=== PATIENT | female | born 1990 | race Caucasian/White ===

== ENCOUNTER 2023-07-10 16:47 | Inpatient (IN) | payer SELFPAY ==
[~2023-07-10 16:47] MED LIST: Iopamidol 370 76% 100 ML VIAL ONE
[2023-07-10 17:28] LABS: #Eosinphils 0.1 10x3/uL (0.0-0.5); #Monocytes 0.9 10x3/uL (0.0-1.1); #Neutrophils 5.9 10x3/uL (1.5-8.4); %Basophils 0.5 % (0.0-2.0); %Eosinophils 1.2 % (0.0-6.0); %Lymphocytes 16.6 % (18.0-47.0); %Monocytes 10.5 % (0.0-10.0); %Neutrophils 70.6 % (40.0-75.0); Hematocrit 39.1 % (34.9-44.5); Hemoglobin 13.6 g/dL (12.0-15.5); Mean Corpuscular HGB CONC 34.8 g/dL (32.0-36.0); Mean Platelet Volume 10.9 fl (7.4-10.4); Platelet Count 286 10x3/uL (150-450); RBC Distribution Width 12.6 % (11.5-14.5); Red Blood Cell (RBC) Count 4.25 10x6/uL (3.90-5.03); White Blood Cell (WBC) Count 8.3 10x3/uL (3.5-10.5)
[2023-07-10 17:44] LABS: ALT (SGPT) 31 U/L (8-55); AST (SGOT) 25 U/L (5-34); Alkaline Phosphatase 87 U/L (40-110); Anion Gap 14 mmol/L (10-20); BUN (Urea Nitrogen) 8 mg/dL (7.0-18.7); Bilirubin, Total 0.3 mg/dL (0.2-1.2); Calc. Creatinine Clearance 0 mL/min (70-130); Calcium 8.4 mg/dL (7.8-10.44); Carbon Dioxide 23 mmol/L (22-29); Chloride 105 mmol/L (98-107); Estimated GFR 99; Globulin 4.1 g/dL (2.4-3.5); Glucose 111 mg/dL (70-105); Potassium 3.5 mmol/L (3.5-5.1); Protein, Total 7.1 g/dL (6.0-8.3); Sodium 138 mmol/L (136-145)
[2023-07-10] MEDS ORDERED: LevoFLOXacin 750 mg/D5W 150 ml Premix Bag ONE (18:39)
[2023-07-10] MEDS ORDERED: Senokot S 8.6-50 MG TAB PO PRN (19:33)
[2023-07-10] MEDS ORDERED: Calcium Carbonate 500 MG ChewTAB PO PRN (19:33)
[2023-07-10] MEDS ORDERED: Ondansetron PF 4 MG/2 ML Vial IVP PRN (19:33)
[2023-07-10 19:46] LABS: SARS-CoV-2 NAA Rapid Test Not Detected (NotDetected)
[2023-07-10] MEDS: Benzonatate 100 MG CAP PO SCH (21:53)
[2023-07-10] MEDS: Zolpidem Tartrate 5 MG TAB PO PRN (21:53)
[2023-07-10 21:56] VITALS: BMI 54.6
[2023-07-11] MEDS: Acetaminophen 325 MG TAB PO PRN ×2 (01:02→18:12)
[2023-07-11 04:59] LABS: #Eosinphils 0.1 10x3/uL (0.0-0.5); #Monocytes 0.9 10x3/uL (0.0-1.1); #Neutrophils 4.1 10x3/uL (1.5-8.4); %Basophils 0.6 % (0.0-2.0); %Lymphocytes 24.7 % (18.0-47.0); %Monocytes 12.4 % (0.0-10.0); %Neutrophils 59.9 % (40.0-75.0); Hematocrit 36.2 % (34.9-44.5); Hemoglobin 12.9 g/dL (12.0-15.5); Mean Corpuscular HGB CONC 35.6 g/dL (32.0-36.0); Mean Corpuscular Hemoglobin 32.7 pg (27.0-33.0); Mean Corpuscular Volume 91.9 fl (81.6-98.3); Mean Platelet Volume 11.4 fl (7.4-10.4); Platelet Count 289 10x3/uL (150-450); RBC Distribution Width 12.4 % (11.5-14.5); Red Blood Cell (RBC) Count 3.94 10x6/uL (3.90-5.03); White Blood Cell (WBC) Count 6.9 10x3/uL (3.5-10.5)
[2023-07-11 05:10] LABS: Anion Gap 12 mmol/L (10-20); BUN (Urea Nitrogen) 8 mg/dL (7.0-18.7); CRP (Inflammatory) 18.37 mg/dL (= or < 0.5); Calc. Creatinine Clearance 280 mL/min (70-130); Carbon Dioxide 23 mmol/L (22-29); Chloride 107 mmol/L (98-107); Estimated GFR 107; Glucose 115 mg/dL (70-105); Potassium 3.5 mmol/L (3.5-5.1); Sodium 138 mmol/L (136-145)
[2023-07-11] MEDS: Guaifenesin DM 100-10/5 ML UDCUP PO PRN ×2 (05:46→18:12)
[2023-07-11 06:16] LABS: Pregnancy Test - Urine (BHCG) Negative (Negative); Pregu Control Background? CLEAR/WHITE (CLR/WHITE); Pregu Control Bar Appear? YES (CONTROL BAR); Specific Gravity 1.005 (1.002-1.036)
[2023-07-11 06:26] LABS: Legionella Urinary Ag Negative (Negative); Strep pneumo Urine Ag NEGATIVE (NEGATIVE)
[2023-07-11] MEDS: Benzonatate 100 MG CAP PO SCH ×3 (09:29→21:41)
[2023-07-11 11:15] LABS: Troponin I 0.066 ng/mL (< 0.028)
[2023-07-11] MEDS: Ipratropium/Albuterol 3 ML NEB NEB PRN ×2 (11:35→19:30)
[2023-07-11] MEDS ORDERED: LevoFLOXacin 750 mg/D5W 750 MG in Premix 1 BAG IVPB SCH (18:00)
[2023-07-11] MEDS: Zolpidem Tartrate 5 MG TAB PO PRN (21:41)
[2023-07-12] MEDS: Guaifenesin DM 100-10/5 ML UDCUP PO PRN (04:42)
[2023-07-12] MEDS ORDERED: Ketorolac Tromethamine 30 MG/ML VIAL IVP PRN (10:25)
[2023-07-12] MEDS: Benzonatate 100 MG CAP PO SCH (11:02)
[2023-07-12] MEDS: Ipratropium/Albuterol 3 ML NEB NEB PRN (11:28)
[2023-07-12 13:59] VITALS: BP 134/68; TEMP 98
[2023-07-14 21:37] LABS: Mycoplasma pneumoniae IgG AB 781 U/mL (0-99); Mycoplasma pneumoniae IgM AB Less than 770 U/mL (0-769)
== END 2023-07-12 15:20 | disposition home or self-care (01) | DRG 871 ==
LOC: CSHERS 16:47 → CSHTELE 21:02
PROVIDERS: ADMIT Student in an Organized Health Care Education/Training Program; ATTEND Family Medicine
DX: A41.9 Sepsis, unspecified organism (principal); J18.9 Pneumonia, unspecified organism; J96.01 Acute respiratory failure with hypoxia; Z68.43 Body mass index [BMI] 50.0-59.9, adult; I5A Non-ischemic myocardial injury (non-traumatic); R65.20 Severe sepsis without septic shock; E66.01 Morbid (severe) obesity due to excess calories; Z98.890 Other specified postprocedural states; F17.210 Nicotine dependence, cigarettes, uncomplicated; Z11.52 Encounter for screening for COVID-19
CPT/HCPCS: 36415; 71045; 71275; 80048; 80053; 81025; 83605; 83880; 84145; 84484; 85025; 85379; 86140; 87070; 87205; 87449; 87899; 93005; 93306; 94640; 94760; 94799; 96365; 96366; J1650; J1885; J1956; J7611; J7620; Q9967

== ENCOUNTER 2023-12-30 14:23 | Emergency (ER) | payer OTHER, SELFPAY ==
[2023-12-30] MEDS ORDERED: Ketorolac Tromethamine 30 MG (1 mL) VIAL ONE (14:57)
== END 2023-12-30 15:10 | disposition home or self-care (01) ==
LOC: CSHERS 14:23
DX: M10.9 Gout, unspecified (principal)
CPT/HCPCS: 96372; 99283; J1885